=== PATIENT | female | born 1970 | race American Indian/Alaskan Native ===

== ENCOUNTER 2017-11-17 09:02 | Inpatient (IN) | payer OTHER ==
[2017-11-16 12:05] VITALS: BMI 24.5
[2017-11-17] MEDS ORDERED: ROPIVACAINE HCL 0.5% 30ML VIAL ONE (09:57)
[2017-11-17] MEDS ORDERED: MIDAZOLAM HCL 2 MG/2 ML SINGLE DOSE VIAL ONE ×2 (10:41→10:42)
[2017-11-17] MEDS ORDERED: CEFAZOLIN 2 GM in DEXTROSE 5%-WATER - 50 ML IVPB ONE (10:53)
--- NOTE | 2017-11-17 10:58 | HP ---
Past Medical History - Primary Care Physician PCP:: Daniel Cook - Admission Chief Complaint: pelvic pain, fibroid uterus, menometrorrhagia, anemia History of Present Illness: 47 yo f lmp 11/09/17 with hx of large fibroid uterus, pelvic pain, menometrorrhagia , and anemia,,hx of RT ovarian cyst admitted for abdominal hysterectomy,, BSO, rba discussed History Source: Patient Limitations to Obtaining History: No Limitations - Past Medical History ...: 1 ...Para: 1 - Past Surgical History Past Surgical History: Yes: Hx Myomectomy: No Hx Transabdominal Cerclage: No - Smoking History Smoking history: Never smoked Have you smoked in the past 12 months: No - Alcohol/Substance Use Hx Alcohol Use: No - Social History Usual Living Arrangement: Yes: With Spouse History of Recent Travel: No Home Medications - Allergies Allergies/Adverse Reactions: Allergies Allergy/AdvReac Type Severity Reaction Status Date / Time No Known Allergies Allergy Verified 11/17/17 09:41 - Home Medications Home Medications: Ambulatory Orders Ferrous Sulfate 65 mg PO DAILY 11/16/17 Review of Systems - Review of Systems Constitutional: reports: Weakness Eyes: reports: No Symptoms HENT: reports: No Symptoms Neck: reports: No Symptoms Cardiovascular: reports: No Symptoms Respiratory: reports: No Symptoms Gastrointestinal: reports: Abdominal Pain, Bloating Genitourinary: reports: Frequency, Urgency, Vaginal Bleeding Breasts: reports: No Symptoms Reported Musculoskeletal: reports: No Symptoms Integumentary: reports: No Symptoms Neurological: reports: No Symptoms Endocrine: reports: No Symptoms Hematology/Lymphatic: reports: No Symptoms Psychiatric: reports: No Symptoms 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 Vital Signs: Vital Signs Temperature 98.8 F 11/17/17 09:38 Pulse Rate 99 H 11/17/17 09:38 Respiratory Rate 18 11/17/17 09:38 Blood Pressure 117/74 11/17/17 09:38 O2 Sat by Pulse Oximetry (%) 100 11/17/17 09:39 Constitutional: Yes: Well Nourished, No Distress, Calm Eyes: Yes: WNL, Conjunctiva Clear, EOM Intact HENT: Yes: WNL, Atraumatic, Normocephalic Neck: Yes: WNL, Supple, Trachea Midline Cardiovascular: Yes: WNL, Regular Rate and Rhythm Respiratory: Yes: WNL, Regular, CTA Bilaterally Gastrointestinal: Yes: WNL ...Rectal Exam: Yes: WNL Renal/: Yes: WNL External Genitalia: Yes: Normal Vaginal Exam: Yes: Normal Cervix: Yes: Normal Uterus: Yes: Enlarged, Firm, Lumpy, Mass Adnexa: Normal: Left, Right Breast(s): Yes: WNL Musculoskeletal: Yes: WNL Extremities: Yes: WNL Integumentary: Yes: WNL Neurological: Yes: WNL, Alert, Oriented ...Motor Strength: WNL Psychiatric: Yes: WNL, Alert, Oriented Problem List - Problem (1) Pelvic pain Code(s): R10.2 - PELVIC AND PERINEAL PAIN (2) Menometrorrhagia Code(s): N92.1 - EXCESSIVE AND FREQUENT MENSTRUATION WITH IRREGULAR CYCLE (3) Fibroid uterus Code(s): D25.9 - LEIOMYOMA OF UTERUS, UNSPECIFIED Qualifiers: Uterine leiomyoma location: intramural Qualified Code(s): D25.1 - Intramural leiomyoma of uterus (4) Anemia Code(s): D64.9 - ANEMIA, UNSPECIFIED Qualifiers: Anemia type: iron deficiency Assessment/Plan admit for supracervical abdominal hysterectomy, BSO,, RBA discussed
[2017-11-17] MEDS ORDERED: fentaNYL CITRATE 250 MCG/5 ML VIAL ONE (11:29)
[2017-11-17] MEDS ORDERED: ceFAZolin SODIUM 1 GM VIAL ONE ×2 (11:29→17:20)
[2017-11-17] MEDS ORDERED: PROPOFOL 20 ML ONE (11:30)
[2017-11-17] MEDS ORDERED: ROCURONIUM BROMIDE 50 MG/5 ML VIAL ONE (11:30)
[2017-11-17] MEDS ORDERED: ceFAZolin SODIUM 1 GM VIAL IVPB ONE (11:44)
[2017-11-17] MEDS ORDERED: DEXAMETHASONE SOD PHOSPHATE 4 MG/1 ML VIAL ONE (11:53)
[2017-11-17] MEDS ORDERED: LIDOCAINE HCL/PF 2% SDV 5ML VIAL ONE (12:06)
[2017-11-17] MEDS ORDERED: NEOSTIGMINE METHYLSULFATE 0.5 MG/ML - 10 ML MDV ONE (12:42)
[2017-11-17] MEDS ORDERED: GLYCOPYRROLATE 0.2 MG/1 ML VIAL ONE (12:42)
[2017-11-17] MEDS ORDERED: ONDANSETRON 4 MG/2 ML VIAL IVPUSH PRN (13:15)
[2017-11-17] MEDS ORDERED: ELECTROLYTE-148 SOLN 1,000 ML IV SCH (13:15)
[2017-11-17] MEDS: ACETAMINOPHEN 1000 MG/100 ML VIAL (NON FORMULARY) IVPB ONE (13:25)
[2017-11-17] MEDS ORDERED: LACTATED RINGERS SOLUTION 1,000 ML IV SCH (13:30)
--- NOTE | 2017-11-17 14:29 | OP ---
DATE OF OPERATION: 11/17/2017 PREOPERATIVE DIAGNOSES: Pelvic pain, menometrorrhagia, fibroid uterus, rule out endometriosis. POSTOPERATIVE DIAGNOSES: Pelvic pain, menometrorrhagia, fibroid uterus, endometriosis, pelvic adhesions. SURGEON: Daniel Cook MD MEDICAL DATA ANALYST: Lalit Guzman MD ANESTHESIA: General. ANESTHESIOLOGIST: Meseret Malcolm MD ESTIMATED BLOOD LOSS: 200 mL DESCRIPTION OF OPERATION: Patient was taken to the operating room. Under adequate general anesthesia, abdomen and perineum were prepped and draped. Pfannenstiel abdominal incision was made over the previous incision. Abdominal wall was cut layer by layer. Anterior peritoneum was exposed and incised. Upon entering the abdominal cavity, upper abdomen was checked, was normal. Bowels were packed away. There was a colon adhesion to the posterior cul-de-sac area. The right ovary was adherent to the posterior cul-de-sac over the colon. There was some dark blood in the abdomen, which was consistent with a ruptured endometrioma. The right ovary was normal. There were some adhesions of the bladder to the lower uterine area from the previous . First, the right ovary was grasped with [place] clamp. Right ovary was dissected from the colon and the posterior cul-de-sac with Metzenbaum scissors in a meticulous fashion. The ovary was released from the colon. There was some oozing where the ovary was adherent to the right pelvic sidewall which was pressurized, and the bleeding was stopped. Then, both round ligaments were identified bilaterally, clamped with a bipolar LigaSure cautery, cauterized, and cut. The bladder was adherent to the lower uterine segment which was dissected with Metzenbaum scissors, and the bladder was pushed down. Then, infundibulopelvic ligament was identified bilaterally, clamped with the Anna clamp, cut, and the clamp replaced with 0 Vicryl ties bilaterally. Then, the same was repeated for the opposite side. Then, bladder was further pushed down. Uterine artery was identified bilaterally, clamped with Anna clamp, cut, and the clamp replaced with 0 Vicryl suture bilaterally. At this time, paracervical area was clamped with Anna clamp, cut, and the clamp replaced with 0 Vicryl suture bilaterally. Bladder was further pushed down, and then, specimen was removed above the cervix. Then, the cervix was sutured with interrupted suture of 0 Vicryl. Hemostasis was established. Again, there was a small amount of bleeding from the right pelvic sidewall where the ovary was adherent. The peritoneal surface was grasped with a right angle clamp and the tie was applied and hemostasis was established. Pelvic cavity was several times irrigated. No active bleeding was seen. There was a small amount of oozing from the anterior surface of the rectum. This time, the FloSeal was applied and hemostasis established. Then, all the lap pad, sponge, and instrument counts were correct. Peritoneum was closed with 0 Vicryl continuous suture. Muscles were brought together with interrupted suture of 0 Vicryl. Fascia was closed with 0 Vicryl continuous suture, subcutaneous fat with interrupted suture of 0 Vicryl, and the skin was closed with 4-0 Vicryl subcuticular, continuous suture. Patient tolerated the procedure well, left the OR in good condition. Peter [id number]
[2017-11-17] MEDS ORDERED: HYDROmorphone HCL CARPU-JECT 2 MG/1 ML DISP.SYRIN IVPB ONE (16:00)
[2017-11-17] MEDS ORDERED: DEXTROSE 5%-WATER - 50 ML IVPB ONE (17:20)
[2017-11-17] MEDS: CEFAZOLIN 1 GM in DEXTROSE 5%-WATER - 50 ML IVPB SCH (17:23)
[2017-11-17] MEDS: IBUPROFEN 800 MG/8 ML IJ IVPB PRN (20:57)
[2017-11-18] MEDS ORDERED: DEXTROSE 5%-WATER - 50 ML IVPB ONE ×2 (01:10→10:05)
[2017-11-18] MEDS ORDERED: ceFAZolin SODIUM 1 GM VIAL ONE ×2 (01:10→10:05)
[2017-11-18] MEDS: CEFAZOLIN 1 GM in DEXTROSE 5%-WATER - 50 ML IVPB SCH ×2 (01:18→10:08)
[2017-11-18] MEDS: oxyCODONE HCL 5 MG TABLET PO PRN ×3 (01:20→15:35)
[2017-11-18] MEDS: IBUPROFEN 800 MG/8 ML IJ IVPB PRN (04:31)
[2017-11-18] MEDS: ACETAMINOPHEN 1000 MG/100 ML VIAL (NON FORMULARY) IVPB ONE (07:02)
[2017-11-18 07:07] LABS: HEMATOCRIT 28.1 % (32.4-45.2); HEMOGLOBIN 9.2 GM/dL (10.7-15.3); MCH 28.6 pg (25.7-33.7); MCHC 32.7 g/dl (32.0-36.0); MEAN CELL VOLUME 87.4 fl (80-96); PLATELET COUNT 244 K/MM3 (134-434); RBC 3.21 M/mm3 (3.60-5.2); RDW 13.9 % (11.6-15.6); WHITE BLOOD COUNT 11.8 K/mm3 (4.0-10.0)
[2017-11-18 07:47] LABS: ANION GAP 6 (8-16); BLOOD UREA NITROGEN 8 mg/dL (7-18); CHLORIDE 105 mmol/L (98-107); CO2 30 mmol/L (21-32); CREATININE 0.8 mg/dL (0.55-1.02); GLUCOSE,RANDOM 109 mg/dL (74-106); POTASSIUM 3.9 mmol/L (3.5-5.1); SODIUM 141 mmol/L (136-145)
[2017-11-18] MEDS ORDERED: BISACODYL 10 MG SUPP.RECT PR PRN (07:56)
[2017-11-18] MEDS ORDERED: SENNOSIDES 8.6MG TABLET (FP) PO PRN (07:57)
[2017-11-18] MEDS ORDERED: ACETAMINOPHEN 325 MG TABLET (FP) PO PRN (08:12)
[2017-11-18] MEDS: ENOXAPARIN NA (PORCINE) 40 MG/0.4 ML DISP.SYRIN SQ SCH (10:08)
[2017-11-18] MEDS: IBUPROFEN 600 MG TABLET (FP) PO PRN ×2 (10:21→15:36)
[2017-11-18] MEDS: SIMETHICONE 80 MG TAB.CHEW (FP) PO PRN ×2 (10:21→15:37)
--- NOTE | 2017-11-18 10:54 | PN ---
Progress Note (short form) - Note Progress Note: pod 1 ambulating, has low abdominal pain CBC WBC 11.8 K/mm3 (4.0-10.0) H 11/18/17 06:45 RBC 3.21 M/mm3 (3.60-5.2) L 11/18/17 06:45 Hgb 9.2 GM/dL (10.7-15.3) L 11/18/17 06:45 Hct 28.1 % (32.4-45.2) L 11/18/17 06:45 MCV 87.4 fl (80-96) 11/18/17 06:45 MCH 28.6 pg (25.7-33.7) 11/18/17 06:45 MCHC 32.7 g/dl (32.0-36.0) 11/18/17 06:45 RDW 13.9 % (11.6-15.6) 11/18/17 06:45 Plt Count 244 K/MM3 (134-434) 11/18/17 06:45 MPV 9.0 fl (7.5-11.1) 11/18/17 06:45 CBC, BMP 11/18/17 06:45 11/18/17 06:45 Intake & Output 11/15/17 11/16/17 11/17/17 11/18/17 23:59 23:59 23:59 23:59 Intake Total 1850 1650 Output Total 750 1300 Balance 1100 350 Weight 58.967 kg Vital Signs - 24 hr 11/17/17 11/17/17 11/17/17 13:14 13:30 13:45 Temperature 98.3 F Pulse Rate 82 85 81 Respiratory 14 18 14 Rate Blood Pressure 131/72 136/6 146/77 O2 Sat by Pulse 100 100 100 Oximetry (%) 11/17/17 11/17/17 11/17/17 14:00 14:15 14:30 Temperature Pulse Rate 80 74 74 Respiratory 14 14 14 Rate Blood Pressure 146/79 140/79 133/73 O2 Sat by Pulse 100 100 100 Oximetry (%) 11/17/17 11/17/17 11/17/17 14:45 15:00 18:30 Temperature 97.5 F L 98.6 F Pulse Rate 75 80 78 Respiratory 18 18 18 Rate Blood Pressure 128/77 138/80 113/63 O2 Sat by Pulse 100 100 Oximetry (%) 11/17/17 11/18/17 11/18/17 22:00 01:23 05:41 Temperature 99.6 F 99.2 F 98.7 F Pulse Rate 80 87 81 Respiratory 18 18 18 Rate Blood Pressure 113/70 121/74 119/74 O2 Sat by Pulse Oximetry (%) abdomen soft, no distension, no cva . BS present incision dry, clean no vaginal bleeding or discharge no calf tenderness plan ambulate, advance diet pain management
--- NOTE | 2017-11-18 11:13 | PN ---
Progress Note, Physician Chief Complaint: day 1 s/p MARU/BSO - Current Medication List Current Medications: Active Medications Acetaminophen (Tylenol -) 650 mg PO Q4H PRN PRN Reason: PAIN LEVEL 1-5 Bisacodyl (Dulcolax Suppository -) 10 mg GA DAILY PRN PRN Reason: CONSTIPATION Enoxaparin Sodium (Lovenox -) 40 mg SQ DAILY EDEN Last Admin: 11/18/17 10:08 Dose: 40 mg Parenteral Electrolytes (Plasma-Lyte 148 -) 1,000 mls @ 125 mls/hr IV ASDIR EDEN Cefazolin Sodium 1 gm/ (Dextrose) 50 mls @ 100 mls/hr IVPB Q8H-IV EDEN Stop: 11/18/17 17:59 Last Admin: 11/18/17 10:08 Dose: 100 mls/hr Lactated Ringer's (Lactated Ringers Solution) 1,000 mls @ 125 mls/hr IV ASDIR EDEN Ibuprofen (Motrin -) 600 mg PO Q6H PRN PRN Reason: FEVER Last Admin: 11/18/17 10:21 Dose: 600 mg Ibuprofen (Caldolor Injection -) 800 mg IVPB Q6H PRN PRN Reason: Fever - If PO not effective. Last Admin: 11/18/17 04:31 Dose: 800 mg Ondansetron HCl (Zofran Injection) 4 mg IVPUSH Q6H PRN PRN Reason: NAUSEA Last Admin: 11/18/17 04:22 Dose: 4 mg Oxycodone HCl (Roxicodone -) 5 mg PO Q4H PRN PRN Reason: PAIN LEVEL 1-5 Last Admin: 11/18/17 10:21 Dose: 5 mg Senna (Senna -) 1 tab PO BID PRN PRN Reason: CONSTIPATION Simethicone (Mylicon -) 80 mg PO Q4H PRN PRN Reason: GAS Last Admin: 11/18/17 10:21 Dose: 80 mg - Objective Vital Signs: Vital Signs Temperature 98.7 F 11/18/17 05:41 Pulse Rate 81 11/18/17 05:41 Respiratory Rate 18 11/18/17 05:41 Blood Pressure 119/74 11/18/17 05:41 O2 Sat by Pulse Oximetry (%) 100 11/17/17 15:00 Labs: CBC, BMP 11/18/17 06:45 11/18/17 06:45 Assessment/Plan Doing well s/p GA and TAP block for MARU/BSO. OOB to chair, walking, minor pain. Likely d/c tomorrow
[2017-11-19] MEDS: IBUPROFEN 600 MG TABLET (FP) PO PRN ×2 (01:58→13:28)
[2017-11-19] MEDS: SIMETHICONE 80 MG TAB.CHEW (FP) PO PRN ×2 (01:58→13:27)
[2017-11-19] MEDS: oxyCODONE HCL 5 MG TABLET PO PRN ×2 (01:59→13:27)
[2017-11-19 08:10] LABS: BASO % 0.2 % (0-2.0); EOS % 0.6 % (0-4.5); HEMATOCRIT 28.1 % (32.4-45.2); HEMOGLOBIN 9.1 GM/dL (10.7-15.3); LYMPH % 17.1 % (8-40); MCH 28.6 pg (25.7-33.7); MCHC 32.5 g/dl (32.0-36.0); MEAN CELL VOLUME 88.1 fl (80-96); MEAN PLT VOLUME 8.8 fl (7.5-11.1); MONO % 5.8 % (3.8-10.2); NEUT % 76.3 % (42.8-82.8); PLATELET COUNT 273 K/MM3 (134-434); RBC 3.19 M/mm3 (3.60-5.2); RDW 13.8 % (11.6-15.6); WHITE BLOOD COUNT 9.6 K/mm3 (4.0-10.0)
[2017-11-19 08:55] VITALS: BP 105/75; PULSE 103; TEMP 99
[2017-11-19] MEDS: ENOXAPARIN NA (PORCINE) 40 MG/0.4 ML DISP.SYRIN SQ SCH (09:54)
--- NOTE | 2017-11-19 15:21 | DS ---
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: Vital Signs Temperature 99 F 11/19/17 08:54 Pulse Rate 103 H 11/19/17 08:54 Respiratory Rate 20 11/19/17 08:54 Blood Pressure 105/75 11/19/17 08:54 O2 Sat by Pulse Oximetry (%) 100 11/17/17 15:00 Constitutional: Yes: Well Nourished, No Distress, Calm Eyes: Yes: WNL, Conjunctiva Clear, EOM Intact HENT: Yes: WNL, Atraumatic, Normocephalic Neck: Yes: WNL, Supple, Trachea Midline Cardiovascular: Yes: WNL, Regular Rate and Rhythm Respiratory: Yes: WNL, Regular, CTA Bilaterally Gastrointestinal: Yes: WNL ...Rectal Exam: Yes: WNL Renal/: Yes: WNL External Genitalia: Yes: Normal Breast(s): Yes: WNL Musculoskeletal: Yes: WNL Extremities: Yes: WNL Edema: No Integumentary: Yes: WNL Wound/Incision: Yes: Clean/Dry, Well Approximated, Sutures Intact Neurological: Yes: WNL, Alert, Oriented ...Motor Strength: WNL Psychiatric: Yes: WNL, Alert, Oriented Labs: CBC, BMP 11/19/17 07:55 11/18/17 06:45 Discharge Summary Reason For Visit: OTHER OVARIAN CYST RIGHT SIDE Current Active Problems Anemia (Acute) Fibroid uterus (Acute) Menometrorrhagia (Acute) Pelvic pain (Acute) Procedures: Principal: supracervical abdominal hysterectomy , BSO. Hospital Course: lysis of adhesion Condition: Good - Instructions Diet, Activity, Other Instructions: regular diet, no intercourse, follow up office 2 weeks, if fever,pain, heavy vaginal bleeding call Referrals: Daniel Cook MD [Staff Physician] - Disposition: HOME - Home Medications Comprehensive Discharge Medication List: Ambulatory Orders Ferrous Sulfate 65 mg PO DAILY 11/16/17 Ibuprofen [Motrin -] 600 mg PO QID #28 tablet 11/18/17
--- NOTE | 2017-11-19 18:07 | PATH ---
Surgical Pathology Report Patient Name: MIGUELINA BERMAN [facility]. Rec. 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 Specimen(s) Received UTERUS WITH BILATERAL TUBES AND OVARIES Clinical History Menorrhagia, fibroid, pelvic pain Final Diagnosis UTERUS, BILATERAL TUBES AND OVARIES, SUPRACERVICAL HYSTERECTOMY AND BILATERAL SALPINGO-OOPHORECTOMY: PROLIFERATIVE ENDOMETRIUM. LEIOMYOMA(TA). BENIGN ENDOCERVICAL TISSUE. BILATERAL OVARIES WITH FOLLICULAR CYSTS. LEFT FALLOPIAN TUBE WITH PARATUBAL CYSTS. UNREMARKABLE RIGHT FALLOPIAN TUBE. Electronically Signed Cornelia Knapp M.D. Gross Description Received in formalin labeled "uterus, bilateral tubes and ovaries," is a 266 g supracervically amputated uterus with bilateral attached fallopian tubes and ovaries. The specimen measures 12 cm from anterior to posterior, 7 cm from superior to inferior and 5 cm from left to right. The serosa is hua-oneal with large bulging subserosal nodules. The endometrial cavity measures 4.5 cm in length and averages 1.7 cm from cornu to cornu. The endometrium is hua-red and averages 0.2 cm in thickness. The myometrium displays abundant intramural nodules measuring up to 4.7 cm in greatest dimension. The cut surface of the nodules is hua, rubbery and displays whorled architecture. No areas of hemorrhage or necrosis are identified. The myometrium is hua-pink and measures up to 6 cm in thickness. The left fimbriated fallopian tube measures 3.2 cm in length. The outer surface is christiansen purple and smooth. Sectioning reveals an unremarkable lumen. The left ovary measures 4.0 x 2.2 x 2.0 cm. The outer surface is hua-christiansen with a cystic appearance. Sectioning reveals multiple hemorrhagic and serous cysts measuring up to 1.3 cm in greatest dimension. The remaining ovarian parenchyma is unremarkable. The right fimbriated fallopian tube measures 2.7 cm in length. The outer surface is christiansen purple and smooth. Sectioning reveals a focally cystic appearing lumen. The right ovary measures 3.2 x 3.0 x 2.0 cm. The outer surface is hua-christiansen with a cystic appearance. Sectioning reveals multiple serous and hemorrhagic cysts measuring up to 1.2 cm in greatest dimension. The remaining ovarian parenchyma is hua and unremarkable. Devulcanizer Head sections are submitted in 16 cassettes as follows: 1-cervical stump margin of resection; 2-7-[id number] endomyometrium; 0-5-apqxyxjns endomyometrium; 6-subserosal nodules; 7-largest intramural nodule; 8-additional intramural nodules; 9-left fallopian tube fimbria; 10-cross sections of left fallopian tube; 11-12-left ovary; 13-right fallopian tube fimbria; 14-cross sections of right fallopian tube; 15-16-right ovary. 11/18/2017 [facility]11/18/2017
== END 2017-11-19 15:35 | disposition home or self-care (01) | DRG 743 ==
LOC: JSAMEDAYSX 09:02 → EDSTATUS 11:00 → J3W 15:14
PROVIDERS: ADMIT Obstetrics & Gynecology; ATTEND Obstetrics & Gynecology
PROC: 0UT20ZZ Resection of Bilateral Ovaries, Open Approach (ICD-10-PCS; 2017-11-17)
PROC: 0UT70ZZ Resection of Bilateral Fallopian Tubes, Open Approach (ICD-10-PCS; 2017-11-17)
PROC: 0JNC0ZZ Release Pelvic Region Subcutaneous Tissue and Fascia, Open Approach (ICD-10-PCS; 2017-11-17)
PROC: 0UT90ZL Resection of Uterus, Supracervical, Open Approach (ICD-10-PCS; principal; 2017-11-17 11:00)
DX: D25.9 Leiomyoma of uterus, unspecified (principal); N80.8 Other endometriosis; N83.201 Unspecified ovarian cyst, right side; N73.6 Female pelvic peritoneal adhesions (postinfective); N32.89 Other specified disorders of bladder; D50.9 Iron deficiency anemia, unspecified
CPT/HCPCS: 36415; 80048; 84702; 85025; 85027; 86850; 86900; 86901; 88307-TC; 94760; J0131

== ENCOUNTER → 2021-10-17 | Day surgery (SDC) | payer OTHER | END | disposition home or self-care (01) | LOC: JRADIR 09:57 | PROVIDERS: ATTEND Internal Medicine Endocrinology, Diabetes & Metabolism | PROC: 0G9K3ZX Drainage of Thyroid Gland, Percutaneous Approach, Diagnostic (ICD-10-PCS; principal; 2021-10-17) | DX: E04.1 Nontoxic single thyroid nodule (principal) | CPT/HCPCS: 10005; 76942; 88173; 88305-TC ==